=== PATIENT | female | born 1955 | race Caucasian/White ===

== ENCOUNTER 2017-09-03 14:55 | Emergency (ER) | payer OTHER ==
[~2017-09-03] VITALS: Ht 160 cm; Wt 94.0 kg
[2017-09-03 15:01] VITALS: TEMP 37.4; Ht 160 cm; Wt 94.0 kg
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
[2017-09-03] MEDS ORDERED: ALLO100T PO (15:36)
[2017-09-03] MEDS ORDERED: GLC/500 PO (15:41)
[2017-09-03] MEDS ORDERED: LANS30CA12 PO (15:41)
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
[2017-09-03 16:31] VITALS: BP 153/85; PULSE 79; O2SAT 97
== END 2017-09-03 16:46 | disposition home or self-care (01) ==
LOC: EDBD 14:55 → C.EDC 14:56
DX: S19.9XXA Unspecified injury of neck, initial encounter (principal); M54.2 Cervicalgia; V43.52XA Car driver injured in collision with other type car in traffic accident, initial encounter; Y92.410 Unspecified street and highway as the place of occurrence of the external cause

== ENCOUNTER 2025-04-07 13:07 | Inpatient (IN) ==
[2025-04-07 14:50] LABS: Hematocrit (blood only) 33.9 % (37.0-47.0); Hemoglobin 11.4 g/dl (12.0-16.0); Immature Granulocytes # (auto) 0.06 K/uL (0.01-0.20); Immature Granulocytes % (auto) 0.5 %; Mean Corpuscular Hemoglobin 28.9 pg (25.0-34.0); Mean Corpuscular Volume 86.0 fL (80.0-100.0); Platelet Count 298 K/uL (130-400); RDW Standard Deviation 42.1 fL (36.4-46.3); Red Blood Count 3.94 M/uL (4.20-5.40); White Blood Count 12.73 K/ul (4.8-10.8)
[2025-04-07 15:06] LABS: Alanine Aminotransferase 20.0 U/L (7-52); Albumin Globulin Ratio 1.7 (0.9-2); Alkaline Phosphatase 101.0 U/L (34-104); Anion Gap 10.0 (3-11); Bilirubin,Total 0.6 mg/dl (0.2-1.0); Blood Urea Nitrogen 20.0 mg/dl (6-23); Calcium 9.6 mg/dl (8.6-10.3); Carbon Dioxide 22.0 mmol/L (21-32); Chloride 91.0 mmol/L (98-107); Creatinine Clr Calc Pharmacy 36.9 ml/min; Globulin 2.8 gm/dl (2.5-4.0); Glucose 184.0 mg/dl (70-99(Fasting)); Lipase 66.0 U/L (11-82); Potassium 4.7 mmol/L (3.5-5.1); Sodium 123.0 mmol/L (136-145); Total Protein 7.5 gm/dl (6.0-8.3)
--- NOTE | 2025-04-07 15:20 | Emergency Department Note ---
Impression & Plan Diarrhea, Hyponatremia, Lower abdominal pain ED Provider Note CHIEF COMPLAINT: Diarrhea HISTORY OF PRESENTING ILLNESS: This 69-year-old female patient presents to the emergency department with her for evaluation of prolonged diarrhea. She has been having 4-5 episodes of loose watery stools a day every day. Denies any blood in the stool. The patient was recently switched from HCTZ to amlodipine per patient and that's when the symptoms started. The patient has had diarrhea since 03/27/25. The patient states that she has also had problems with her kidneys recently which is why her medications were switched. She denies any abdominal pain, nausea, or vomiting. She denies any urinary symptoms. Denies recent antibiotic use, recent travel, drinking from outside water sources/well water, and denies known ill contacts. She is not on any blood thinners. REVIEW OF SYSTEMS: See HPI for pertinent positives and pertinent negatives. ALLERGIES: NKDA MEDICATIONS: See below PAST MEDICAL HISTORY: See below PHYSICAL EXAM: VITALS: Vitals are noted on the nurse's note and reviewed by myself. GENERAL: Non toxic, in no acute distress, non-diaphoretic. SKIN: Capillary refill <2 sec. EYES: PERRLA. EOMI. Conjunctivae without injection, sclerae without icterus. NOSE: Patent without discharge. MOUTH: Mucous membranes moist. Uvula midline. Airway patent. NECK: Supple without nuchal rigidity. HEART: Regular rate and rhythm without murmurs gallops or rubs. LUNGS: Clear to auscultation bilaterally without wheezes, rales or rhonchi. No retractions or accessory muscle use. ABDOMEN: Positive bowel sounds x 4. Normal tympanic percussion. Soft, mild lower abdominal discomfort. No masses or hepatosplenomegaly. Nunez sign negative. No CVA tenderness. No guarding, rigidity, or rebound tenderness. No focal RLQ or LLQ tenderness. MUSCULOSKELETAL: No gross musculoskeletal defects. NEURO: Patient was alert and oriented. No focal neurological deficits. DIFFERENTIAL DIAGNOSIS: Differential diagnosis includes C. difficile, bacterial gastroenteritis, viral gastroenteritis, electrolyte abnormality, acute kidney injury, hepatitis, pancreatitis, cholecystitis, cholelithiasis, appendicitis, kidney stone, pyelonephritis, UTI, gastritis, gastroenteritis, mesenteric adenitis, obstruction, constipation, hernia, abdominal abscess, perforation, diverticulitis, IBD, ischemic colitis, abdominal aortic aneurysm, , ectopic , ovarian cyst, ovarian torsion, acute salpingitis, or others. ED COURSE AND MEDICAL DECISION MAKING: HISTORY FROM INDEPENDENT HISTORIAN: Additional history obtained from the patient's MEDICATIONS GIVEN: 500 mL normal saline solution bolus INTERPRETATION OF LABS: I interpreted the labs with full lab results as below in the lab section of this note. Laboratory results pertinent to the emergent complaint are discussed in the MDM section below. The patient was advised to follow up with their PCP and/or specialist(s) for further outpatient monitoring and management of any abnormal results. INTERPRETATION OF IMAGING: Imaging studies were interpreted by myself and read by radiology as per the imaging section of this note. The patient was advised to follow up with their PCP and/or specialist(s) for further outpatient management of any non-emergent abnormal findings. CT scan of the abdomen and pelvis was performed without contrast due to the patient's recent abnormal renal functions and GFR. CT scan of the abdomen and pelvis without contrast shows mild left adrenal nodular thickening which is likely an adenoma, but no other acute abnormalities. CONSULTATIONS: On-call hospitalist MDM SUMMARY: The patient was seen during a time of extreme volume and extreme acuity. Nursing triage protocols were initiated with IV lock, labs, and/or imaging studies conducted by protocol in the triage area. The patient was initially evaluated in a triage room and then re-evaluated once they were taken back to an exam room. The patient has had diarrhea since 03/27/25. She has been having abnormal renal functions as an outpatient so her blood pressure medications were recently changed. She feels like the diarrhea started soon after changing her medications. She has lower abdominal cramping from the diarrhea, but denies other symptoms. The patient was given 500 mL normal saline solution bolus. She declined any other medication for her symptoms while in the ER. White blood cell count elevated at 12.73. Hemoglobin low at 11.4. Platelet count normal at 298. Sodium low at 123, chloride 91, creatinine 1.55, and glucose at 184. CMP otherwise without concerning abnormalities. Lipase normal. Urinalysis with trace ketones and questionable urinalysis. The patient was unable to give a stool sample while in the emergency department after my evaluation, but stated that she had 4 episodes of diarrhea before she was advised to give a stool sample. CT scan of the abdomen and pelvis was performed without contrast due to the patient's recent abnormal renal functions and GFR. CT scan of the abdomen and pelvis without contrast shows mild left adrenal nodular thickening which is likely an adenoma, but no other acute abnormalities. I had a meaningful discussion about this patient with Dr. Hernandez who agrees with my assessment and the treatment plan. Due to the patient's continued diarrhea as well as her hyponatremia, we feel the patient requires admission for further evaluation and treatment. I spoke with the on-call hospitalist who agreed to admit the patient for further management. Please refer to their dictation for further details. The patient's care was transferred in stable condition. DIAGNOSIS: Diarrhea Hyponatremia Lower abdominal pain Past Med/Surg History Problem List (Updated 04/07/25 @ 21:58 by Nuvia Delvalle PA-C) Lower abdominal pain (Acute) Hyponatremia (Acute) Diarrhea (Acute) Type 2 diabetes mellitus Essential hypertension Hyponatremia Volume depletion Enteritis GERD (gastroesophageal reflux disease) Kidney stones Social History Smoking Status: Never smoker Preferred Language: Serbian Feels Safe at Home: Yes Allergies Allergies Allergy/AdvReac Type Severity Reaction Status Date / Time No Known Allergies Allergy Unverified 09/03/17 15:35 Home Meds Home Medications Medication Instructions Recorded Confirmed lansoprazole 30 mg capsule,delayed 30 mg PO DAILY #0 caps 09/03/17 04/07/25 release allopurinol 100 mg tablet 100 mg PO DAILY 04/07/25 04/07/25 allopurinol 300 mg tablet 300 mg PO DAILY 04/07/25 04/07/25 amlodipine 5 mg tablet 5 mg PO DAILY 04/07/25 04/07/25 ascorbic acid (vitamin C) 1,000 mg 1,000 mg PO DAILY 04/07/25 04/07/25 tablet (Vitamin C) aspirin 81 mg tablet 81 mg PO DAILY 04/07/25 04/07/25 atorvastatin 80 mg tablet 80 mg PO HS 04/07/25 04/07/25 meloxicam 15 mg tablet 15 mg PO DAILY 04/07/25 04/07/25 metformin 500 mg tablet 500 mg PO DAILY 04/07/25 04/07/25 olmesartan 20 mg tablet 20 mg PO DAILY 04/07/25 04/07/25 sitagliptin phosphate 100 mg 100 mg PO DAILY 04/07/25 04/07/25 tablet (Januvia) Results & Data (ED) Vital Signs Vital Signs - 24 hr 04/07/25 13:14 04/07/25 17:34 Temperature 36.3 C L Temperature Source Temporal Artery Scan Pulse Rate 93 H Pulse Rate [Finger] 96 H Respiratory Rate 18 24 Respiratory Effort / Characteristics Non-Labored Spontaneous Respiratory Depth Normal Respiratory Pattern Regular Blood Pressure 179/78 H Blood Pressure [Right Arm] 146/74 H Blood Pressure Mean 111 Blood Pressure Mean [Right Arm] 98 Pulse Oximetry 97 98 Oxygen Delivery Method Room Air Room Air Sepsis Recent Fever Within 48 Hours No Sepsis New/Unexplained Change in Mental Status N/A Sepsis Action Taken by Nursing No Action Required Laboratory Data 04/07/25 14:29 04/07/25 14:29 Lab Results 04/07/25 Range/Units 14:29 WBC 12.73 H (4.8-10.8) K/ul RBC 3.94 L (4.20-5.40) M/uL Hgb 11.4 L (12.0-16.0) g/dl Hct 33.9 L (37.0-47.0) % MCV 86.0 (80.0-100.0) fL MCH 28.9 (25.0-34.0) pg MCHC 33.6 (32.0-36.0) g/dL RDW Std Deviation 42.1 (36.4-46.3) fL RDW Coeff of Vikas 13.6 (11.5-14.5) % Plt Count 298 (130-400) K/uL MPV 9.6 (9.4-12.4) fL Immature Gran % (Auto) 0.5 % Neut % (Auto) 79.6 % Lymph % (Auto) 12.5 % Hubbard % (Auto) 6.4 % Eos % (Auto) 0.6 % Baso % (Auto) 0.4 % Neut # (Auto) 10.14 H (1.40-6.50) K/uL Lymph # (Auto) 1.59 (1.20-3.40) K/uL Hubbard # (Auto) 0.81 H (0.11-0.59) K/uL Eos # (Auto) 0.08 (0.00-0.50) K/uL Baso # (Auto) 0.05 (0.00-0.20) K/uL Immature Gran # (Auto) 0.06 (0.01-0.20) K/uL Sodium 123 L (136-145) mmol/L Potassium 4.7 (3.5-5.1) mmol/L Chloride 91 L (98-107) mmol/L Carbon Dioxide 22 (21-32) mmol/L Anion Gap 10 (3-11) BUN 20 (6-23) mg/dl Creatinine 1.55 H (0.6-1.2) mg/dl Est Cr Clr Drug Dosing 36.9 ml/min eGFR 36.27 BUN/Creatinine Ratio 12.9 (10-20) Glucose 184 H (70-99(Fasting)) mg/dl Osmolality 269 L (280-300) mOsm/kg Calcium 9.6 (8.6-10.3) mg/dl Total Bilirubin 0.6 (0.2-1.0) mg/dl AST 22 (13-39) U/L ALT 20 (7-52) U/L Alkaline Phosphatase 101 (34-104) U/L Total Protein 7.5 (6.0-8.3) gm/dl Albumin 4.7 (3.4-5.0) gm/dl Globulin 2.8 (2.5-4.0) gm/dl Albumin/Globulin Ratio 1.7 (0.9-2) Lipase 66 (11-82) U/L Administered Medications Insulin Aspart (Insulin Aspart Per Unit Charge) 0 units SC ACHS SHARON Stop: 05/07/25 20:59 Last Admin: 04/07/25 21:16 Dose: 6 units Documented By: DARLENE Co-signed By: DEBORAH Psyllium Hydrophilic Mucilloid (Psyllium Husk 4gm Packet) 4 gm PO BID SHARON Stop: 05/07/25 20:59 Last Admin: 04/07/25 21:16 Dose: 4 gm Documented By: DARLENE Discontinued Medications Sodium Chloride (Nss) 500 mls @ 999 mls/hr IV .Q31M ONE Stop: 04/07/25 16:02 Last Infusion: 04/07/25 17:26 Dose: Infused Documented By: Admin: 04/07/25 16:48 Dose: 999 mls/hr Documented By: [facility] Imaging Data Radiologist's Impression: Abdomen/Pelvis CT 04/07/25 15:33 EXAMINATION: CT of the abdomen and pelvis performed without contrast TECHNIQUE: Helical CT images from the lung bases through the symphysis pubis were obtained without contrast. Coronal and sagittal reformatted images were generated at a workstation for further assessment. Dose reduction techniques were achieved by using automatic exposure control and/or adjustment of mA and/or kV according to patient size and/or use of iterative reconstruction technique. COMPARISON: None HISTORY: Abdominal pain FINDINGS: Lower chest: No consolidation. No pleural effusion or pneumothorax. Liver: No suspicious liver lesions. Gallbladder: No gallstones. No evidence of acute cholecystitis. Spleen: Normal size. Pancreas: No suspicious pancreatic lesions. The pancreatic duct is not dilated. Adrenal glands: Mild thickening of the left adrenal gland measuring 1.2 cm, likely an adenoma. Hounsfield unit values less than 10 favor a fat-containing adenoma. Normal right adrenal gland. Kidneys: No hydronephrosis or obstructing renal stones. Bladder / Pelvic organs: Unremarkable. Bowel: No bowel obstruction. No abnormal bowel wall thickening. The appendix is unremarkable. Sigmoid colonic diverticulosis without diverticulitis. Small sliding hiatal hernia. Lymph nodes: No retroperitoneal, mesenteric, or pelvic lymphadenopathy. Peritoneum / Retroperitoneum: No free fluid or air within the abdomen. Vessels: No infrarenal aortic aneurysm. Heavy aortoiliac calcification. Bones and soft tissues: No suspicious lesion in the bones. IMPRESSION: No acute intra-abdominal process. Mild left adrenal nodular thickening, likely an adenoma. Electronically signed by Celio Jacinto 04-07-2025 4:48 PM Discharge Plan Visit Data Chief Complaint: Diarrhea Stated Complaint: DIARRHEA ED Provider: Esau Hernandez ED Midlevel Provider: Nuvia Delvalle Discharge Problem: Diarrhea, Hyponatremia, Lower abdominal pain Patient Disposition: Admitted As Inpatient Condition: Fair Discharge Instructions Interventions: ED Discharge Assessment Last Done: 04/07/25 20:18 Discharge Problem: Diarrhea Qualifiers: Diarrhea type: unspecified type Qualified Code(s): R19.7 - Diarrhea, unspecified
[2025-04-07] MEDS: SODIUM CHLORIDE 0.9% 500 ML IV ONE (16:48)
--- NOTE | 2025-04-07 16:49 | CT Scan Report ---
EXAMINATION: CT of the abdomen and pelvis performed without contrast TECHNIQUE: Helical CT images from the lung bases through the symphysis pubis were obtained without contrast. Coronal and sagittal reformatted images were generated at a workstation for further assessment. Dose reduction techniques were achieved by using automatic exposure control and/or adjustment of mA and/or kV according to patient size and/or use of iterative reconstruction technique. COMPARISON: None HISTORY: Abdominal pain FINDINGS: Lower chest: No consolidation. No pleural effusion or pneumothorax. Liver: No suspicious liver lesions. Gallbladder: No gallstones. No evidence of acute cholecystitis. Spleen: Normal size. Pancreas: No suspicious pancreatic lesions. The pancreatic duct is not dilated. Adrenal glands: Mild thickening of the left adrenal gland measuring 1.2 cm, likely an adenoma. Hounsfield unit values less than 10 favor a fat-containing adenoma. Normal right adrenal gland. Kidneys: No hydronephrosis or obstructing renal stones. Bladder / Pelvic organs: Unremarkable. Bowel: No bowel obstruction. No abnormal bowel wall thickening. The appendix is unremarkable. Sigmoid colonic diverticulosis without diverticulitis. Small sliding hiatal hernia. Lymph nodes: No retroperitoneal, mesenteric, or pelvic lymphadenopathy. Peritoneum / Retroperitoneum: No free fluid or air within the abdomen. Vessels: No infrarenal aortic aneurysm. Heavy aortoiliac calcification. Bones and soft tissues: No suspicious lesion in the bones. IMPRESSION: No acute intra-abdominal process. Mild left adrenal nodular thickening, likely an adenoma. Electronically signed by Celio Jacinto 04-07-2025 4:48 PM
--- NOTE | 2025-04-07 18:17 | History & Physical Report ---
Date of Service April 07, 2025 Assessment & Plan (1) Enteritis: Plan: Obtain stool culture. Start Metamucil twice daily to add bulk to the stools and hopefully decrease frequency of bowel movements. (2) Volume depletion: Plan: IV fluids. Associated with acute kidney injury. Monitor urine output. Serial labs (3) Hyponatremia: Plan: Check serum osmolarity. IV fluids. Serial labs (4) Essential hypertension: Plan: Amlodipine is on hold. Will follow (5) Type 2 diabetes mellitus: Plan: ADA diet. Sliding scale coverage. Metformin is on hold. Continue Januvia Plan Hopeful discharge back to her home within the next day or 2 History of Present Illness Chief Complaint: Watery diarrhea for 10 days Primary Care Provider: Ambar Viera PA-C 69-year-old white female who has had watery diarrhea for the past 10 days. She states it started when she switched from hydrochlorothiazide over to amlodipine. She stopped taking the amlodipine yesterday. She has had no recent travels and no one else in the family is ill. She denies melena or hematochezia. She has some nausea but no vomiting. She is tolerating oral intake. Sodium is low at 123 and creatinine elevated at 1.5 Allergies Allergy/AdvReac Type Severity Reaction Status Date / Time No Known Allergies Allergy Unverified 09/03/17 15:35 Home Medications Medication Instructions Recorded Confirmed Type lansoprazole 30 mg capsule,delayed 30 mg PO DAILY #0 caps 09/03/17 04/07/25 History release allopurinol 100 mg tablet 100 mg PO DAILY 04/07/25 04/07/25 History allopurinol 300 mg tablet 300 mg PO DAILY 04/07/25 04/07/25 History amlodipine 5 mg tablet 5 mg PO DAILY 04/07/25 04/07/25 History ascorbic acid (vitamin C) 1,000 mg 1,000 mg PO DAILY 04/07/25 04/07/25 History tablet (Vitamin C) aspirin 81 mg tablet 81 mg PO DAILY 04/07/25 04/07/25 History atorvastatin 80 mg tablet 80 mg PO HS 04/07/25 04/07/25 History meloxicam 15 mg tablet 15 mg PO DAILY 04/07/25 04/07/25 History metformin 500 mg tablet 500 mg PO DAILY 04/07/25 04/07/25 History olmesartan 20 mg tablet 20 mg PO DAILY 04/07/25 04/07/25 History sitagliptin phosphate 100 mg 100 mg PO DAILY 04/07/25 04/07/25 History tablet (Januvia) Past Med/Surg History Problem List (Updated 04/07/25 @ 18:15 by John Castro MD) Type 2 diabetes mellitus Essential hypertension Hyponatremia Volume depletion Enteritis GERD (gastroesophageal reflux disease) Kidney stones Social History Smoking Status: Never smoker Preferred Language: [place] Feels Safe at Home: Yes Review of Systems 2 Review of Systems: Constitutionalno fever or chills ENTno blurred vision, no double vision, no epistaxis, no sore throat Respiratoryno cough, no wheezing, no shortness of breath Cardiacno palpitations, no chest pain, no syncope GIpersistent watery diarrhea. No melena or hematochezia. Occasional nausea but no vomiting GUno urinary retention, no urinary incontinence, no dysuria, no hematuria Musculoskeletalno joint pain, no muscle tenderness Skinno bruising, no rashes, no pruritus Neurono isolated weakness, no paresthesia, no weakness Psychno depression, no anxiety Physical Exam 2 Physical Exam: General-alert and oriented x3, no fever, no chills HEENT-head atraumatic and normocephalic, pupils equal and reactive to light, extraocular muscles intact Neck-no lymphadenopathy or thyromegaly, trachea midline Chest-clear to auscultation. No rales, wheezing or rhonchi Cardiac-regular rate and rhythm, normal S1 and S2 Abdomen-normal bowel sounds, no hepatosplenomegaly Extremities-no cyanosis, clubbing, or edema Neuro-cranial nerves II through XII intact, motor and sensory function within normal limits, strength symmetrical, no focal deficits Psych-normal affect, normal mood Results & Data Results & Data Vital Signs (Past 12 Hours) Vital Signs Temp Pulse Pulse Resp BP BP Pulse Ox 04/07/25 17:34 96 H 24 146/74 H 98 04/07/25 13:14 36.3 C L 93 H 18 179/78 H 97 O2 Del Method 04/07/25 17:34 Room Air 04/07/25 13:14 Room Air Laboratory Results 04/07/25 14:29 04/07/25 14:29 Code Status & VTE Plan Code Status Full code PG Care Time/CCT Total # of Minutes Spent Total Time Spent with Patient: Total time spent is greater than 50% in coordination of care (as documented) at patient's floor/unit and/or counseling patient: Coding Level of Care Code 61925 INT INP/OBS CARE MIN Diagnoses Enteritis K52.9 Volume depletion E86.9 Hyponatremia E87.1 Essential hypertension I10 Type 2 diabetes mellitus E11.9
[2025-04-07 18:25] LABS: Appearance Urine Clear (Clear); Bacteria Urine Automated 1+ (None Seen); Cast Urine Automated 0-2 /lpf (0-2); Glucose Urine UA Negative (Negative); RBC Urine Automated 0-2 /hpf (0-2)
[2025-04-07] MEDS ORDERED: GLUCAGON FOR INJ 1 MG VIAL SQ PRN (20:17)
[2025-04-07] MEDS ORDERED: CARBOHYDRATES FOR HYPOGLYCEMIA PO PRN (20:17)
[2025-04-07] MEDS ORDERED: GLUCOSE 40% GEL 15 GM TUBE PO PRN (20:17)
[2025-04-07] MEDS ORDERED: DEXTROSE 50% 50 ML SYRINGE IV PRN (20:17)
[2025-04-07] MEDS ORDERED: ONDANSETRON INJ 2 MG/ML 2 ML VIAL IV PRN (20:17)
[2025-04-07] MEDS ORDERED: GLUCOSE 10 TAB/TUBE PO PRN (20:17)
[2025-04-07] MEDS ORDERED: ACETAMINOPHEN 325 MG TAB PO PRN (20:17)
[2025-04-07] MEDS: INSULIN ASPART PER UNIT CHARGE SC SCH (21:16)
[2025-04-07] MEDS: PSYLLIUM HUSK 4GM PACKET PO SCH (21:16)
[2025-04-07 21:34] LABS: Cdiff Toxin B Gene (2yr or >) Negative Cdiff Gene (Neg)
[2025-04-07 22:09] LABS: Adenovirus F 40/41 PCR Not Detected (NotDetected); Campylobacter PCR Not Detected (NotDetected); Enteroaggregative E.coli(EAEC) Not Detected (NotDetected); Shiga-like Toxin E.coli (STEC) Not Detected (NotDetected); Vibrio species PCR Not Detected (NotDetected)
[2025-04-07] MEDS: SODIUM CHLORIDE 0.9% 1,000 ML IV SCH (22:22)
[2025-04-08 07:51] LABS: Hematocrit (blood only) 29.9 % (37.0-47.0); Hemoglobin 9.9 g/dl (12.0-16.0); Immature Granulocytes # (auto) 0.03 K/uL (0.01-0.20); Immature Granulocytes % (auto) 0.5 %; Mean Corpuscular Hemoglobin 28.8 pg (25.0-34.0); Mean Corpuscular Volume 86.9 fL (80.0-100.0); Platelet Count 241 K/uL (130-400); RDW Standard Deviation 43.1 fL (36.4-46.3); Red Blood Count 3.44 M/uL (4.20-5.40); White Blood Count 6.30 K/ul (4.8-10.8)
[2025-04-08 08:09] LABS: Anion Gap 6.0 (3-11); Blood Urea Nitrogen 15.0 mg/dl (6-23); Calcium 8.7 mg/dl (8.6-10.3); Carbon Dioxide 23.0 mmol/L (21-32); Chloride 100.0 mmol/L (98-107); Creatinine Clr Calc Pharmacy 52.4 ml/min; Glucose 133.0 mg/dl (70-99(Fasting)); Potassium 4.8 mmol/L (3.5-5.1); Sodium 129.0 mmol/L (136-145)
[2025-04-08] MEDS: ASCORBIC ACID 500 MG TAB PO SCH (09:28)
[2025-04-08] MEDS: ENOXAPARIN INJ 40 MG/0.4 ML SYR SQ SCH (09:28)
[2025-04-08] MEDS: ASPIRIN 81 MG ECTAB PO SCH (09:28)
--- NOTE | 2025-04-08 16:35 | Hospitalist Progress Note ---
Date of Service April 08, 2025 Assessment & Plan (1) Enteritis: Plan: The patient states she has not had any loose stools since admission when the amlodipine was discontinued and Metamucil started. (2) Volume depletion: Plan: Much improved with IV fluids. Fluid rate has been tapered down. Renal function has improved. Monitor urine output. Serial labs (3) Hyponatremia: Plan: Sodium has improved to 129. Serum osmolarity mildly low at 269 on admission. Continue IV fluids. Serial labs (4) Essential hypertension: Plan: Amlodipine has been discontinued. Blood pressure is currently stable and acceptable. Will follow (5) Type 2 diabetes mellitus: Plan: ADA diet. Sliding scale coverage. Metformin is on hold. Continue Januvia Plan Hopeful discharge back to home tomorrow, April 09 Admission and Anticipated Discharge Date Admission Date: April 07, 2025 Subjective Alert and oriented. She looks and feels better. Sodium has improved to 129. IV rate decreased to 60 cc an hour. She states she has not had any loose stools since amlodipine was discontinued on admission and Metamucil started. Blood pressure remains acceptable off amlodipine which will not be restarted. Creatinine improved to 1.1. Hopefully she can go home tomorrow, April 09 Review of Systems 2 Review of Systems: Constitutionalno fever or chills ENTno blurred vision, no double vision, no epistaxis, no sore throat Respiratoryno cough, no wheezing, no shortness of breath Cardiacno palpitations, no chest pain, no syncope GIpersistent watery diarrhea has now resolved. No melena or hematochezia. Occasional nausea has now resolved. GUno urinary retention, no urinary incontinence, no dysuria, no hematuria Musculoskeletalno joint pain, no muscle tenderness Skinno bruising, no rashes, no pruritus Neurono isolated weakness, no paresthesia, no weakness Psychno depression, no anxiety Physical Exam 2 Physical Exam: General-alert and oriented x3, no fever, no chills HEENT-head atraumatic and normocephalic, pupils equal and reactive to light, extraocular muscles intact Neck-no lymphadenopathy or thyromegaly, trachea midline Chest-clear to auscultation. No rales, wheezing or rhonchi Cardiac-regular rate and rhythm, normal S1 and S2 Abdomen-normal bowel sounds, no hepatosplenomegaly Extremities-no cyanosis, clubbing, or edema Neuro-cranial nerves II through XII intact, motor and sensory function within normal limits, strength symmetrical, no focal deficits Psych-normal affect, normal mood Results & Data Results & Data Vital Signs (Past 12 Hours) Vital Signs Temp Pulse Resp BP Pulse Ox O2 Del Method 04/08/25 15:02 36.8 C 69 16 116/72 98 Room Air 04/08/25 07:38 36.6 C 67 16 120/71 96 Room Air Laboratory Results 04/08/25 06:54 04/08/25 06:54 PG Care Time/CCT Total # of Minutes Spent Total Time Spent with Patient: Total time spent is greater than 50% in coordination of care (as documented) at patient's floor/unit and/or counseling patient: Coding Level of Care Code 52395 SUB INP/OBS CARE 2/35MIN Diagnoses Enteritis K52.9 Volume depletion E86.9 Hyponatremia E87.1 Essential hypertension I10 Type 2 diabetes mellitus E11.9
[2025-04-09 07:08] LABS: Hematocrit (blood only) 29.6 % (37.0-47.0); Hemoglobin 10.3 g/dl (12.0-16.0); Immature Granulocytes # (auto) 0.02 K/uL (0.01-0.20); Immature Granulocytes % (auto) 0.3 %; Mean Corpuscular Hemoglobin 30.5 pg (25.0-34.0); Mean Corpuscular Volume 87.6 fL (80.0-100.0); Platelet Count 244 K/uL (130-400); RDW Standard Deviation 43.8 fL (36.4-46.3); Red Blood Count 3.38 M/uL (4.20-5.40); White Blood Count 6.23 K/ul (4.8-10.8)
[2025-04-09 07:28] LABS: Anion Gap 6.0 (3-11); Blood Urea Nitrogen 13.0 mg/dl (6-23); Calcium 8.8 mg/dl (8.6-10.3); Carbon Dioxide 23.0 mmol/L (21-32); Chloride 106.0 mmol/L (98-107); Creatinine Clr Calc Pharmacy 54.2 ml/min; Glucose 128.0 mg/dl (70-99(Fasting)); Potassium 5.1 mmol/L (3.5-5.1); Sodium 135.0 mmol/L (136-145)
[2025-04-09] MEDS: METOPROLOL TARTRATE 25 MG TAB PO SCH (11:28)
--- NOTE | 2025-04-09 11:59 | Discharge Summary ---
Discharge Summary Date of Service April 09, 2025 Principal Dx & Hospital Course #1 = Principal Diagnosis (1) Enteritis: The patient continues to state she has not had any loose stools since admission when the amlodipine was discontinued and Metamucil started. (2) Volume depletion: Resolved with IV fluids. Renal function has normalized. Monitor urine output. Serial labs (3) Hyponatremia: Sodium has improved to 135. Serum osmolarity mildly low on admission at 269 on admission. Treated with IV fluids. Serial labs (4) Essential hypertension: Amlodipine has been discontinued. Metoprolol tartrate 25 mg twice daily has been started for blood pressure and heart rate control in place of amlodipine. (5) Type 2 diabetes mellitus: ADA diet. Sliding scale coverage. Metformin is on hold while hospitalized. Continue Januvia Plan Home today, April 09 Admission HPI Per Admitting Provider 69-year-old white female who has had watery diarrhea for the past 10 days. She states it started when she switched from hydrochlorothiazide over to amlodipine. She stopped taking the amlodipine yesterday. She has had no recent travels and no one else in the family is ill. She denies melena or hematochezia. She has some nausea but no vomiting. She is tolerating oral intake. Sodium is low at 123 and creatinine elevated at 1.5 Discharge Exam General-alert and oriented x3, no fever, no chills HEENT-head atraumatic and normocephalic, pupils equal and reactive to light, extraocular muscles intact Neck-no lymphadenopathy or thyromegaly, trachea midline Chest-clear to auscultation. No rales, wheezing or rhonchi Cardiac-regular rate and rhythm, normal S1 and S2 Abdomen-normal bowel sounds, no hepatosplenomegaly Extremities-no cyanosis, clubbing, or edema Neuro-cranial nerves II through XII intact, motor and sensory function within normal limits, strength symmetrical, no focal deficits Psych-normal affect, normal mood Discharge Plan Discharge Items Patient Disposition: Home - Self-Care Reason For Visit: ENTERITIS Discharge Diagnosis: Suspected amlodipine side effect with persistent diarrhea, volume depletion, acute kidney injury, hyponatremia Condition on Discharge: Good Activity: Resume your previous activity Non-emergency contact: Primary Care Provider Call non-emergency contact if: your symptoms worsen Follow-up/Referrals: Ambar Viera PA-C [Primary Care Provider] - Diet: Carb Consistent or DM2 Addtl Attending Provider Instructions: Amlodipine has been discontinued. Take metoprolol 25 mg twice daily for blood pressure and heart rate control to replace amlodipine. A prescription has been sent to your pharmacy. All other medications remain the same. Pending Studies at Discharge: No Stand-Alone Forms: My [facility], Smoking Cessation Medications and DC Order Prescriptions: New metoprolol tartrate 25 mg Tablet 25 mg PO BID Qty: 60 0RF Continued lansoprazole 30 mg Capsule,Delayed Release(Dr/Ec) 30 mg PO DAILY Qty: 0 metformin 500 mg tablet 500 mg PO DAILY atorvastatin 80 mg tablet 80 mg PO HS ascorbic acid (vitamin C) [Vitamin C] 1,000 mg Tablet 1,000 mg PO DAILY meloxicam 15 mg tablet 15 mg PO DAILY allopurinol 100 mg tablet 100 mg PO DAILY Rx Instructions: take with 300 mg for total dose of 400 mg allopurinol 300 mg tablet 300 mg PO DAILY aspirin 81 mg Tablet 81 mg PO DAILY olmesartan 20 mg tablet 20 mg PO DAILY Rx Instructions: patient states provider changed it to 20 mg from 40 mg even thought 40 mg is current on med history Januvia 100 mg tablet 100 mg PO DAILY Discontinued amlodipine 5 mg tablet 5 mg PO DAILY Discharge Orders: Discharge Order (Routine); Ordered 04/09/25 Ordered By: John Castro Admission Data Admit Date/Time: 04/07/25 18:06 Attending Provider: John Castro Admit Provider: John Castro Primary Care Provider: Ambar Viera Other Providers: John Castro Hospital Stay Data Consultations 04/07/25 17:39 ED Decision to Admit Stat Diagnostic Imagining Performed 04/07/25 15:33 CT abd pelvis wo con Stat Pending Results Patient Have Any Pending Studies at Discharge: No Discharge Instructions Given to Patient (Per Discharging Provider) Amlodipine has been discontinued. Take metoprolol 25 mg twice daily for blood pressure and heart rate control to replace amlodipine. A prescription has been sent to your pharmacy. All other medications remain the same. Total Time Total Time Spent Total Time Spent (In Minutes): 45 minutes Coding Level of Care Code 83602 INP/OBS DISCH >30 MIN Diagnoses Enteritis K52.9 Volume depletion E86.9 Hyponatremia E87.1 Essential hypertension I10 Type 2 diabetes mellitus E11.9
--- NOTE | 2025-04-10 15:57 | Electrocardiogram Report ---
Test Reason : Blood Pressure : */* mmHG Vent. Rate : 87 BPM Atrial Rate : 87 BPM P-R Int : 196 ms QRS Dur : 72 ms QT Int : 340 ms P-R-T Axes : 26 -4 40 degrees QTcB Int : 409 ms Normal sinus rhythm Low voltage QRS Cannot rule out Anterior infarct , age undetermined Abnormal ECG No previous ECGs available Confirmed by Christopher Aguilar ([id number]) on 04/10/2025 3:57:36 PM Referred By: REFERRED SELF Confirmed By: Christopher Aguilar
== END 2025-04-09 13:09 | disposition home or self-care (01) | DRG 392 ==
LOC: SUATTDRO → ED 13:07 → EDINP 18:06 → 3W 20:18